=== PATIENT | female | born 1950 ===

== ENCOUNTER 2017-03-11 03:38 | Day surgery (SDC) | payer MEDICARE, BC ==
[2016-03-27 12:49] VITALS: Ht 167.6 cm; Wt 73.9 kg
[~2017-03-11] VITALS: Ht 167.6 cm; Wt 73.9 kg
[2017-03-11] VITALS (8 sets, daily range): BP systolic 111–140; BP diastolic 72–94
[~2017-03-11 03:38] MED LIST: ACET-2043 PO; ASPI-1471 PO; ASPI-757 PO; ASPI81TA94 PO; CARV12.578 PO; DILT60TA33 PO; HYDR12.556 PO; IBUP100T51 PO; LEV100 PO; LEVO75TA73 PO; LOSA50TA72 PO; MAGN30OR2 PO; OXYC-823 PO; OXYC-865 PO; OXYC20TA99 PO; OXYGENHOME INH; PRAV20TA65 PO; PRO100 PO; RIV10 PO; [UNRECOGNIZED DRUG - CODE] PO
[2017-03-11] MEDS ORDERED: ROPIVACAINE 0.2% 20 ML VIAL ONE (10:03)
[2017-03-11] MEDS ORDERED: BUPIV/EPI 0.25% 1:200,000 50ML INFIL ONE (10:03)
[2017-03-11] MEDS ORDERED: fentaNYL CITR 100 MCG/2 ML AMP ONE (10:22)
[2017-03-11] MEDS ORDERED: LIDOCAINE MPF 1% 5 ML VIAL ONE (10:29)
[2017-03-11] MEDS ORDERED: PROPOFOL EMUL(*) 10MG/ML 20 ML 20 ML ONE (10:29)
[2017-03-11] MEDS ORDERED: DEXAMETHASONE SOD PHOS 10MG/ML ONE (10:29)
[2017-03-11] MEDS ORDERED: ONDANSETRON 4 MG/2 ML VIAL ONE (10:29)
[2017-03-11] MEDS ORDERED: NS 0.9% 20 ML SDV 20 ML ONE (10:31)
[2017-03-11] MEDS ORDERED: ROPIVACAINE 0.5% 20 ML VIAL ONE (10:31)
[2017-03-11] MEDS ORDERED: EPINEPHrine HCL 1 MG/ML AMP ONE (10:31)
[2017-03-11] MEDS ORDERED: LIDOCAINE/SOD BICARB 8.4% SYR ID ONE (11:55)
[2017-03-11] MEDS ORDERED: FAMOTIDINE 20 MG TAB PO ONE (11:55)
[2017-03-11] MEDS ORDERED: MIDAZOLAM 2 MG/2 ML VIAL IVP PRN (11:55)
[2017-03-11] MEDS ORDERED: NORMOSOL R SOLN(*) 1000 ML BAG 1,000 ML IV PRN (11:55)
[2017-03-11] MEDS ORDERED: ceFAZolin(*) 1 GM VIAL 1 GM in NS(*) 0.9% 100 ML ADDVANT BAG 100 ML IVPB ONE (11:55)
[2017-03-11] MEDS ORDERED: LABETALOL HCL 100 MG/20ML VIAL ONE (12:15)
[2017-03-11] MEDS ORDERED: KETAMINE HCL 200 MG/20 ML MDV ONE (12:15)
[2017-03-11] MEDS ORDERED: ROCURONIUM BROM 10 MG/ML 5 ML ONE (12:15)
[2017-03-11] MEDS ORDERED: SUGAMMADEX SOD 200 MG/2 ML SDV ONE (12:50)
[2017-03-11] MEDS ORDERED: OXYC-865 PO (14:50)
[2017-03-11] MEDS ORDERED: CEPH500T7 PO (14:50)
[2017-03-11] MEDS ORDERED: oxyCODONE/ACETAMIN 5/325MG TH 2 TAB/BOTTLE ONE (17:53)
--- NOTE | 2017-03-11 19:05 | OPERATIVE REPORT 1 ---
EVENT DATE: March 11, 2017 SURGEON: Benjamin Nicole MD ANESTHESIOLOGIST: Titus Ray MD ANESTHESIA: General plus scalene block. 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 PROCEDURE PERFORMED Left shoulder arthroscopy with extensive labral debridement, biceps tenotomy, preparation for subscapular repair using placement of anchors and preparation of lesser tuberosity with a bur using the arthroscopic, followed by open subacromial decompression, lateral clavicle excision, biceps tenodesis, and completion of subscapular repair. ESTIMATED BLOOD LOSS Minimal. INTRAVENOUS FLUIDS 1300 TOURNIQUET TIME None. SPECIMENS None. COMPLICATIONS None. IMPLANTS Three 2.9 mm Juggernaut anchors. SUMMARY OF PROCEDURE The patient was brought into the operating room and placed on the OR table in the supine position. After obtaining adequate general anesthesia and having done a scalene block, she was placed in the beach chair position, and her left shoulder was prepped and draped in the usual sterile fashion. The Oc shoulder freeman was used for traction. We started with the standard posterior visualization and anterior instrumentation portal. There was a lot of degenerative tearing of the labrum with thickening and redundant tissue. Some of it was seen to overhang the posterosuperior labrum. There was some fraying of the supraspinatus with about a 10% to 15% tear as measured on the footprint. Interestingly, the biceps tendon itself looked a little bit broad, but did not have a lot of fraying. It was easy to subluxate completely over the lesser tuberosity and down into the anterior aspect of the shoulder. In addition, the subscapularis looked quite irregular. I would not say that it looked like it was a [id number] tear, but the undersurface was completely detached from the lesser tuberosity. It is just that its continuity was maintained out to the interval. We used a shaver to debride the redundant tissue. I did a biceps tenotomy and then used a radiofrequency approach to seal off any bleeding , smooth out the debrided labrum, and in some cases actually used the radiofrequency probe for the debridement itself, especially posterosuperiorly. While there was some arthritic change in the humeral head, it did not look like it was particularly rough, so it did not seem like radiofrequency probe heating would be of any benefit for her. I did debride the area of the supraspinatus insertion which was fairly minor. The subscapularis repair was then prepared by first using a radiofrequency probe on the detached portion of the lesser tuberosity. I then used a bur to roughen up the surface just through the bone. We then placed two anchors. Both were 2.9 mm Juggernauts. One was relatively more medial. The other one was more lateral near the margin of the bicipital groove. I took a quick look at how it would work to use a [employer]ak to pass the suture in mattress fashion through the subscapularis while simultaneously advancing it towards the lesser tuberosity, and I felt that she would get a much better repair in an open technique for this particular problem. We removed the arthroscope and made an incision in Ab lines, deepened through skin and subcutaneous tissue. I then split the periosteum from the lateral aspect of the clavicle across the anterior portion of the acromion, and down for about 3 cm in the deltoid fascia. We exposed the hook on the anterior aspect of the acromion as well as the flare of the arthritic AC joint. Retractors were placed. The AC joint was resected along its lateral margin, taking off approximately 8 mm. I then took off the anterior aspect of the acromion, but in so doing only removed about 6 or 7 mm and then did a counter cut on the inferior surface to effect a thinning of the anterior portion of the acromion. This entire region was then rasped with a manual rasp , including the lateral aspect of the clavicle to smooth all surfaces. The bursa was excised. We then placed a self-retaining retractor and exposed the area of interest at the subscapularis. I identified the bicipital groove and opened the ligament there which allowed me to enter the joint and view the detached portion of the deep fibers of the subscapularis. We were able to advance the inferior deep fibers and then place free needles through them using the previously loaded anchors. After passing all of the sutures, we then progressively tied starting from the medial deep to the superficial lateral. I then identified the biceps that had previously been removed, roughed up the surface on its underside at the bicipital groove, and then placed one additional anchor. These sutures were passed up through the biceps and then through the tissues surrounding the biceps to include the wall of the bicipital groove. These were all tied and then cut short. The wound was again irrigated before completion of the superficial subscapularis repair by using a running nonabsorbable suture. This was tied off, and then we went on to place three drill holes through the acromion and repair the deltoid attachment, after which this entire region was oversewn with a running 0 Vicryl. The wound was irrigated one more time before closing the subcutaneous tissue with 3-0 Vicryl, and then 4-0 Monocryl completed the closure with Steri-Strips applied. We had also injected a local analgesic for postoperative pain control. She was then transferred to the recovery area in stable condition having been awakened by Dr. Ray. JACQUELINE
== END 2017-03-11 15:25 | disposition home or self-care (01) ==
LOC: OR 03:38
PROVIDERS: ATTEND Orthopaedic Surgery Hand Surgery
DX: M75.102 Unspecified rotator cuff tear or rupture of left shoulder, not specified as traumatic (principal); M19.012 Primary osteoarthritis, left shoulder
CPT/HCPCS: 29826; 29827; A9270; C1713; J0171; J0690; J1100; J2001; J2250; J2405; J2704; J2795; J3010; J3490; J7050; L3670